=== PATIENT | female | born 1970 | race Caucasian/White ===

== ENCOUNTER 2024-04-22 14:19 | Inpatient (IN) | payer MEDICARE, SELFPAY ==
[2024-04-22] VITALS (12 sets, daily range): BP systolic 110–147; BP diastolic 64–79; PULSE 80–91; RESP 17–25; TEMP 36.2–37.4; O2SAT 89–97; BMI 39.7; BMI 40.1
--- NOTE | ~2024-04-22 | CT_ITS ---
EXAMINATION: CTA chest PE protocol DATE: 04/22/2024 19:06 INDICATION: Shortness of breath. TECHNIQUE: Computed tomography angiography (CTA) of the chest was performed with 100 mL Omnipaque-350 intravenous contrast timed to evaluate the pulmonary arteries. Coronal maximum intensity projection 3D-reconstructions were created by the technologist. Automated exposure control and iterative reconst ruction technique were employed. The dose-length product was 670.24 mGy-cm. COMPARISON: Chest 2 views 04/22/2024 FINDINGS: The lungs demonstrate mild atelectasis. A calcified left lung nodule is consistent with old granulomatous disease. There are patchy airspace opacities in right lower lobe and posterior segment right upper lobe, consistent with pneumonia. No pleural effusion. The heart size is normal. No peric ardial effusion. There is no pulmonary embolus. There is mild right hilar lymphadenopathy, likely darcy ctive. There is mild thoracic spondylosis. IMPRESSION: 1. No pulmonary embolus. 2. Pneumonia involving right lower lobe and right upper lobe. 3. Mild right hilar lymphadenopathy, likely reactive. Reviewed, dictated and finalized at location A.
--- NOTE | ~2024-04-22 | XR_ITS ---
EXAMINATION: XR chest 2V DATE: 04/22/2024 16:00 INDICATION: Dyspnea TECHNIQUE: frontal and lateral views of the chest were obtained. COMPARISON: None FINDINGS: Patchy airspace opacity in the right mid lung zone suspicious for pneumonia. There is additional curv ilinear streaky opacities in the left lower lung zone and favor atelectasis over pneumonia. No pulmon cory edema, pleural effusion or pneumothorax. The cardiomediastinal silhouette is normal. Mild to mode rate thoracic spondylosis. IMPRESSION: 1. Opacities in the right mid and left lower lung zones which could represent atelectasis, pneumonia, pulmonary infarct or some combination thereof. Reviewed, dictated and finalized at location A. IMPRESSION: 1. Opacities in the right mid and left lower lung zones which could represent a telectasis, pneumonia, pulmonary infarct or some combination thereof.
--- NOTE | 2024-04-22 14:58 | ECG_ITS ---
Test Date: 2024-04-22 15:15:14 Measurements Intervals [place] Rate: 76 P: 59 VA: 161 QRS: 52 QRSD: 109 T: 68 QT: 392 QTc: 441 Interpretive Statements SINUS RHYTHM POOR R-WAVE PROGRESSION ABNORMAL ECG No previous ECG available for comparison Electronically Signed On 04-22-2024 18:06:19 CDT by Stefano Nichols M.D.
--- NOTE | 2024-04-22 14:59 | ED.URI ---
HPI - URI/Sore Throat General Chief Complaint: Upper Respiratory Infection <MARIO Farias Last Filed: 04/24/24 15:59> Stated Complaint: cough, shortness of breath <MARIO Farias Last Filed: 04/24/24 15:59> Time Seen by Provider: 04/22/24 14:59 <MARIO Farias Last Filed: 04/24/24 15:59> Focused HPI: This is a 54 year old female that presents to the ER for dyspnea. Reports history of COPD. She has had worsening trouble breathing despite recently being on steroids. Reports a cough. Denies fevers. GENERAL: Well-nourished, uncomfortable HEAD: Normocephalic, atraumatic. CHEST: No respiratory distress. Lung sounds diminished with diffuse wheezing HEART: Regular rate and rhythm.? NEURO: ?Alert and oriented x3. Patient screened in triage and initial orders placed.? ?Additional care and disposition to be based upon?diagnostic testing and treatment. <MARIO Farias Last Filed: 04/24/24 15:59> History of Present Illness HPI Narrative: I agree with the PA's MSE assessment in triage. <BETY Vega Last Filed: 04/22/24 19:56> Related Data Home Medications: Home Medications Medication Instructions Recorded Confirmed bisoprolol 5 1 tablet PO DAILY 04/22/24 04/22/24 mg-hydrochlorothiazide 6.25 mg tablet metformin 500 mg tablet 500 mg PO BID 04/22/24 04/22/24 <MARIO Farias Last Filed: 04/24/24 15:59> Allergies/Adverse Reactions: Allergies Allergy/AdvReac Type Severity Reaction Status Date / Time No Known Allergies Allergy Verified 04/22/24 15:00 <MARIO Farias Last Filed: 04/24/24 15:59> Review of Systems Review of Systems: I agree with the provider's initial MSE. <BETY Vega Last Filed: 04/22/24 19:56> All systems reviewed & are unremarkable except as noted in HPI and below <Jessica Reed APRN - Last Filed: 04/22/24 19:56> [facility] Past Medical History Medical History: Medical History (Updated 04/24/24 @ 15:59 by Zenaida Jacob PA-C) History of COPD <Zenaida Jacob PA-C - Last Filed: 04/24/24 15:59> Family History Family History: Family History (Updated 04/22/24 @ 21:25 by Jocelin Osman RN) Mother ALS (amyotrophic lateral sclerosis) Father Congestive heart failure <Zenaida Jacob PA-C - Last Filed: 04/24/24 15:59> Social History Social History: Social History Smoking status: Smoker, status unknown Tobacco type: cigarettes Alcohol intake: never Substance use type: marijuana Last use: january 2024 Do You Feel Safe in your Home?: Yes Lack of Transportation: YES Lack of Food: Never True Current Housing: I Have Housing Concerned About Future Housing: No Difficulty Paying Gas/Electric Bills: No Difficulty Paying for Meds: YES Currently Unemployed: No Education: High School Diploma/GED Difficulty w/ Childcare or Family Care: No Spiritual care concerns: No <Zenaida Jacob PA-C - Last Filed: 04/24/24 15:59> Exam Narrative: GENERAL: Well appearing, well-nourished, non-toxic, pt rocking back and forth in pain NECK: Supple. No adenopathy, no masses. RESPIRATORY: Airway patent, respirations labored, Pt has coarse lung sounds with mild wheezing R>L CARDIOVASCULAR: Regular rate and rhythm without murmurs, rubs, or gallops. Peripheral pulses 2+ and equal bilaterally. ABDOMINAL: Soft, nontender, nondistended, no hepatosplenomegaly. Normoactive BS. MUSCULOSKELETAL: Moves all extremities. Strength/ROM intact without gross deformities. SKIN: Warm, dry, normal color. No rashes. NEURO: A&O X3. Speech clear. Cranial nerves II-XII grossly intact. Steady gait. No ataxic movements. PSYCHIATRIC: Appropriate mood and affect. Normal interaction. <Jessica Reed APRN - Last Filed: 04/22/24 19:56> Course BDR/PA Physician Supervision Patient's HPI, Exam, a
[2024-04-22] MEDS: IPRATROPIUM 0.5 MG/ALBUTEROL SULFATE 2.5 MG AMPUL.NEB 3 ML INHALATION ×2 (15:08→19:29)
[2024-04-22 16:27] LABS: Basophils Absolute Auto 0.1 K/mm3 (0.0-0.1); Basophils Percent Auto 0.2 % (0.2-1.2); Eosinophils Absolute Auto 0.2 K/mm3 (0-0.3); Eosinophils Percent Auto 0.7 % (0-4.4); Hematocrit 45.9 % (37.0-47.0); Hemoglobin 14.8 g/dL (12.0-15.0); Immature Granulocyte Absolute 0.16 K/mm3 (0.00-0.031); Immature Granulocyte Percent A 0.6 % (0-0.5); Lymphocytes Absolute Auto 3.84 K/mm3 (0.9-3.2); Lymphocytes Percent Auto 14.5 % (18.3-44.2); Mean Corpuscular HGB Conc 32.2 g/dl (32-36); Mean Corpuscular Hemoglobin 28.8 pg (26-34); Mean Corpuscular Volume 89.5 fl (80-100); Mean Platelet Volume 9.5 fl (7.4-10.4); Monocytes Absolute Auto 1.7 K/mm3 (0.1-0.6); Monocytes Percent Auto 6.6 % (2.6-8.5); Neutrophils Absolute Auto 20.5 K/mm3 (1.3-6.7); Neutrophils Percent Auto 77.4 % (45.5-73.1); Platelet Count Result 365 k/mm3 (150-375); Red Blood Count 5.13 M/mm3 (4.2-5.4); Red Cell Distribution Width 14.5 % (11.5-14.5); White Blood Count 26.5 K/mm3 (4.5-10.0)
[2024-04-22 16:39] LABS: Alanine Aminotransferase 22 U/L (6-35); Alkaline Phosphatase 132 U/L (38-126); Anion Gap 10 mmol/L (4-12); Aspartate Amino Transferase 19 U/L (14-36); Bilirubin,Total 2.5 mg/dL (0.2-1.3); Blood Urea Nitrogen 12 mg/dL (7-17); Calcium 8.7 mg/dL (8.4-10.2); Carbon Dioxide 29 mmol/L (22-30); Chloride 97 mmol/L (98-107); Estimated CRCL calculation 92 ml/min; Estimated Glomerular Filt Rate > 60; Glucose 270 mg/dL (65-110); Potassium 3.7 mmol/L (3.4-5.0); Sodium 136 mmol/L (137-145)
[2024-04-22 16:41] LABS: Partial Thromboplastin Time 28.8 Seconds (22.3-36.8)
[2024-04-22 16:50] LABS: Troponin I < 0.012 ng/mL (0.000-0.034)
[2024-04-22 17:02] LABS: D Dimer 0.56 ug/mL (<0.48)
[2024-04-22] MEDS: ONDANSETRON INJ 4 MG/2 ML VIAL IV PUSH (17:02)
[2024-04-22] MEDS: MORPHINE SULFATE (*CRX) 2 MG/ML INJ IV PUSH (17:02)
[2024-04-22] MEDS: KETOROLAC 15 MG/ML VIAL (*BKC) IV PUSH (17:02)
[2024-04-22] MEDS: methylPREDNISolone SOD SUCC 125 MG VIAL IV PUSH (17:02)
[2024-04-22 17:04] LABS: Influenza A QL RT-PCR Negative (Negative); Influenza B QL RT-PCR Negative (Negative); RSV RNA, RT-PCR Negative (Negative); SARS-CoV-2 RNA PCR Negative (Negative)
--- NOTE | 2024-04-22 17:31 | PC.NURSE ---
SHAWNEE Lopez APRN states to start the fluid bolus with 2L.
[2024-04-22 17:38] LABS: Lactic Acid Reflex 1.6 mmol/L (0.7-2.0)
[2024-04-22 17:59] LABS: CRP 15.9 mg/dL (<1.0)
--- NOTE | 2024-04-22 19:37 | PM.IMHP ---
H&P: HPI History of Present Illness Date/Time: 04/22/24 19:37 Chief Complaint: sob Narrative: This is a 54-year-old female with past medical history significant for COPD/emphysema, chronic bronchitis, tobacco dependence. Patient presents to the emergency room with worsening shortness of breath cough productive of sputum, fevers, chills. Preliminary workup was significant for chest x-ray with infiltrate. Patient has been admitted for further evaluation management and treatment. EXAMINATION: XR chest 2V DATE: 04/22/2024 16:00 INDICATION: Dyspnea TECHNIQUE: frontal and lateral views of the chest were obtained. COMPARISON: None FINDINGS: Patchy airspace opacity in the right mid lung zone suspicious for pneumonia. There is additional curvilinear streaky opacities in the left lower lung zone and favor atelectasis over pneumonia. No pulmonary edema, pleural effusion or pneumothorax. The cardiomediastinal silhouette is normal. Mild to moderate thoracic spondylosis. IMPRESSION: 1. Opacities in the right mid and left lower lung zones which could represent atelectasis, pneumonia, pulmonary infarct or some combination thereof. EXAMINATION: CTA chest PE protocol DATE: 04/22/2024 19:06 INDICATION: Shortness of breath. TECHNIQUE: Computed tomography angiography (CTA) of the chest was performed with 100 mL Omnipaque-350 intravenous contrast timed to evaluate the pulmonary arteries. Coronal maximum intensity projection 3D-reconstructions were created by the technologist. Automated exposure control and iterative reconstruction technique were employed. The dose-length product was 670.24 mGy-cm. COMPARISON: Chest 2 views 04/22/2024 FINDINGS: The lungs demonstrate mild atelectasis. A calcified left lung nodule is consistent with old granulomatous disease. There are patchy airspace opacities in right lower lobe and posterior segment right upper lobe, consistent with pneumonia. No pleural effusion. The heart size is normal. No pericardial effusion. There is no pulmonary embolus. There is mild right hilar lymphadenopathy, likely reactive. There is mild thoracic spondylosis. IMPRESSION: 1. No pulmonary embolus. 2. Pneumonia involving right lower lobe and right upper lobe. 3. Mild right hilar lymphadenopathy, likely reactive. [facility] Family History Family History (Updated 04/22/24 @ 21:25 by Jocelin Osman RN) Mother ALS (amyotrophic lateral sclerosis) Father Congestive heart failure Social History Social History Smoking status: Smoker, status unknown Tobacco type: cigarettes Alcohol intake: never Substance use type: marijuana Last use: january 2024 Do You Feel Safe in your Home?: Yes Lack of Transportation: YES Lack of Food: Never True Current Housing: I Have Housing Concerned About Future Housing: No Difficulty Paying Gas/Electric Bills: No Difficulty Paying for Meds: YES Currently Unemployed: No Education: High School Diploma/GED Difficulty w/ Childcare or Family Care: No Spiritual care concerns: No Meds Home Medications and Allergies Home Medications Medication Instructions Recorded Confirmed Type bisoprolol 5 1 tablet PO DAILY 04/22/24 04/22/24 History mg-hydrochlorothiazide 6.25 mg tablet metformin 500 mg tablet 500 mg PO BID 04/22/24 04/22/24 History Allergies Allergy/AdvReac Type Severity Reaction Status Date / Time No Known Allergies Allergy Verified 04/22/24 15:00 Vital Signs Vital Signs - 24 hr 04/22/24 14:53 04/22/24 15:08 04/22/24 15:19 Temperature 98.4 F Pulse Rate 84 85 83 Respiratory Rate 25 H 23 H 24 H Blood Pressure 124/64 Pulse Oximetry 90 Oxygen Delivery Room Air Oxygen Flow Rate 04/22/24 17:11 04/22/24 17:11 04/22/24 16:00 Temperature Pulse Rate 82 Respiratory Rate 22 H Blood Pressure 147/79 H Pulse Oximetry 94 93 89 L Oxygen Delivery Na
--- NOTE | 2024-04-22 19:53 | PC.NURSE ---
Pt given sandwich, jello, and chips.
[2024-04-22] MEDS: AZITHROMYCIN 500 MG/NS 250 ML 500 MG/250 ML BAG 250 MG IVPB (20:08)
[2024-04-22] MEDS: SODIUM CHLORIDE 0.9% IV 1,000 ML 125 ML IV CONT (23:17)
[2024-04-23 05:30] VITALS: BP 139/79; PULSE 90; RESP 18; TEMP 36.5; O2SAT 90
[2024-04-23 08:00] VITALS: O2SAT 94
[2024-04-23 11:27] LABS: Glucose Point of Care 333 mg/dl (65-105)
[2024-04-23 12:23] LABS: Hemoglobin A1C 7.8 % (<5.7)
--- NOTE | 2024-04-23 15:11 | PC.NURSE ---
Patient verbalized multiple times through-out the shift complaints about not receiving IV antibiotic therapy, home medications, and other numerous complaints. Patient educated on timing of antibiotic therapy and that it is not time for a dose yet, and that home medications have not been re-ordered by the provider and nursing staff can not give medications without an order. Patient becoming irate and verbally aggressive towards staff. Staff at this time left the room to call security and notify the provider, Miguel Keyes. Wali notified of patient's complaints. Patient came out of room dressed and requesting to leave. Patient given a leaving against medical advice form and educated on the risks of leaving. Patient refused to sign AMA form. Peripheral IV access discontinued. AMA form signed with two RN witness. Wali notified of patient leaving against medical advice.
--- NOTE | 2024-04-28 15:40 | PM.DS ---
DS: Admitting Diagnosis Discharge Date 04/23/24 Admitting Diagnosis Acute Hypoxic Respiratory Failure DS: Discharge Diagnosis Discharge Diagnosis (1) Acute hypoxic respiratory failure: Code(s): J96.01 - Acute respiratory failure with hypoxia Status: Acute Assessment and Plan: - Currently on supplemental oxygen by nasal cannula. - Started on IV abx in ER and bronchodilators. - Patient left the hospital AMA. (2) RLL pneumonia: Code(s): J18.9 - Pneumonia, unspecified organism Status: Acute Assessment and Plan: started on Rocephin and Zithromax in ER cultures in progress Patient left hospital AMA (3) Tobacco dependence: Code(s): F17.200 - Nicotine dependence, unspecified, uncomplicated Status: Acute Assessment and Plan: nicotine patch as needed (4) Chronic bronchitis: Code(s): J42 - Unspecified chronic bronchitis Status: Acute Assessment and Plan: breathing treatments PRN Plan Patient left the hospital AMA DS: Summary Hospital Course Reason for hospitalization: Acute Hypoxic Respiratory Failure Hospital Course: Patient is a 54 year old female that presented to the ER for dyspnea. She reported history of COPD and had worsening trouble breathing despite recently being on steroids and despite using her bronchodilator. Patient had blood-cultures drawn and started on IV antibiotics. She was admitted for treatment but after a few hours of hospitalization patient left the hospital against medical advise, demanding to have more antibiotics before scheduled time. Patient was informed of the dangers of untreated pneumonia, including , but she stated she'll be ok and left the hospital. Status at Discharge Functional status at discharge: independent ambulation Overall status at discharge: patient is not back to baseline Time Spent with Patient Time attestation: Total time spent providing and/or coordinating discharge services: Time spent: Less than 30 minutes Exam Const: General: comfortable, no acute distress, well developed, alert, awake and average body habitus Nutritional Appearance: average body habitus Orientation/consciousness: patient oriented x3 HENMT: Head: normal to inspection, normocephalic and atraumatic Ears: hearing grossly normal bilaterally Face/Nose/Sinus: normal facial exam Face and sinus: normal facial exam Eyes: General: appearance normal, both eyes and all related structures Pupils: Equal, round and reactive pupils present EOM: EOMs intact bilaterally Neck: Neck: full ROM, no lymphadenopathy and no JVD Thyroid: thyroid normal Lymphatic: no lymphadenopathy noted Resp: Effort & Inspection: normal respiratory effort and able to speak in complete sentences Auscultation: clear to auscultation bilaterally Cardio: Jugular venous distension: no JVD Rate: regular rate Rhythm: regular rhythm Heart sounds: S1 normal heart sound present and S2 normal heart sound present : General: Yes deferred Skin: Rashes: no rashes Wounds: no wounds Neuro: General: patient oriented x3 and CN's II-XI intact bilaterally Cranial nerves: Yes CN's II-XII intact bilaterally and Yes Equal, round and reactive pupils present Cognition (Neuro): normal cognition Speech: normal speech Gait exam (Neuro): Normal gait present Motor exam (neuro): 5/5 motor strength present throughout Extrem: General: normal to inspection, full ROM, no joint enlargement and no pedal edema Discharge Plan Discharge Attending physician on discharge: Estevan Marshall Consulting providers: Stefano Nichols; Braden Russ; Zenaida Jacob; Harry Campso V. Discharging Clinician: Wali Rivera Anticipated Discharge Date/Time: 04/23/24 15:00 Patient Disposition: Left Against Medical Advice Activity: as tolerated Diet: heart healthy Patient Instructions: How to Stop Smoking (DC), Pain Management (DC), Pneumonia (DC) Discharge Medica
== END 2024-04-23 15:10 | disposition left against medical advice (07) | DRG 193 ==
LOC: ANHED 19:52 → ANH3MEDSUR 20:50
PROVIDERS: Physician Assistant; Admitting Provider Internal Medicine; Emergency Provider Registered Nurse; Visit Provider Nurse Practitioner Adult Health
DX: J18.9 Pneumonia, unspecified organism (principal); J96.01 Acute respiratory failure with hypoxia; J44.0 Chronic obstructive pulmonary disease with (acute) lower respiratory infection; Z20.822 Contact with and (suspected) exposure to COVID-19; Z72.0 Tobacco use
CPT/HCPCS: 36415; 71046; 71275; 80053; 82948; 83036; 83605; 84484; 85025; 85380; 85610; 85730; 86140; 87040; 87637; 93005; 94640; 96361; 96365; 96375; 99285; G0378; J0456; J0696; J1885; J2270; J2405; J2919; J7030; Q9967